=== PATIENT | male | born 1985 ===

== ENCOUNTER 2018-12-22 11:33 | Emergency (ER) | payer SELFPAY ==
[2018-12-22] MEDS ORDERED: Sodium Chloride 0.9% 1,000 ML IV STA (11:52)
--- NOTE | 2018-12-22 11:55 | ED PDOC ---
HPI: General Adult Time Seen by Provider: 12/22/18 11:38 Chief Complaint (Nursing): Chest Pain History Per: Patient Onset/Duration Of Symptoms: Days (1) Current Symptoms Are (Timing): Still Present Severity: Mild Recent Trauma: Fell yesterday Additional Complaint(s): Fell yesterday with injury to left lateral ribs. C/o pain left ribs, worse on inspiration and movement. Denies SOB. Denies LOC. Admits to drinking daily, last drink 3 PM yesterday. Feels tremulous now. Wishes to stop drinking. No NVD. No fever. Past Medical History Vital Signs: Last Vital Signs Temp 98.6 F 12/22/18 11:43 Pulse 108 H 12/22/18 11:43 Resp 20 12/22/18 11:43 BP 159/100 H 12/22/18 11:43 Pulse Ox 98 12/22/18 11:43 - Medical History PMH: No Chronic Diseases - Family History Family History: States: Unknown Family Hx - Home Medications Home Medications: Ambulatory Orders Medication Instructions Recorded Naproxen [Naprosyn] 500 mg PO Q12H #20 tab 12/22/18 chlordiazePOXIDE [Chlordiazepoxide 25 mg PO Q8 #6 cap 12/22/18 HCl] - Allergies Allergies/Adverse Reactions: Allergies Allergy/AdvReac Type Severity Reaction Status Date / Time No Known Allergies Allergy Verified 12/22/18 11:43 Review of Systems ROS Statement: Except As Marked, All Systems Reviewed And Found Negative Constitutional: Negative for: Fever Cardiovascular: Positive for: Chest Pain Respiratory: Negative for: Shortness of Breath Gastrointestinal: Negative for: Nausea, Vomiting Neurological: Positive for: Other (Tremulous). Negative for: Seizures, Headache, Dizziness Physical Exam - Reviewed Nursing Documentation Reviewed: Yes Vital Signs Reviewed: Yes - Physical Exam Appears: Positive for: Non-toxic, No Acute Distress Head Exam: Positive for: ATRAUMATIC, NORMAL INSPECTION, NORMOCEPHALIC Skin: Positive for: Normal Color, Warm, DRY Eye Exam: Positive for: EOMI, Normal appearance, PERRL ENT: Positive for: Normal ENT Inspection Neck: Positive for: Normal, Painless ROM Cardiovascular/Chest: Positive for: Regular Rate, Rhythm, Tachycardia. Negative for: Chest Non Tender (Tenderness left lateral lower ribs. No ecchymosis or flail) Respiratory: Positive for: CNT, Normal Breath Sounds Gastrointestinal/Abdominal: Positive for: Normal Exam, Soft Back: Positive for: Normal Inspection Extremity: Positive for: Normal ROM Neurological/Psych: Positive for: Awake, Alert, Normal Tone, Oriented (x3), Other (Tremors upper ext bilat). Negative for: Motor/Sensory Deficits - Laboratory Results Result Diagrams: 12/22/18 12:05 12/22/18 12:05 - ECG O2 Sat by Pulse Oximetry: 98 Medical Decision Making Medical Decision Making: Tremors most likely secondary to ETOH withdrawal. Will tx with librium and IV fluids. Will obtain xray to r/o rib fracture vs. pneumothorax Xray read by radiologist as no pneumothorax or rib fx Pt reevaluated at 1:30. Feels better and is no longer tremulous Will Dc with outpt referal for ETOH treatment Disposition - Clinical Impression Clinical Impression: Rib contusion, Alcohol addiction - Patient ED Disposition Is Patient to be Admitted: No - Disposition Disposition: Routine/Home Disposition Time: 13:31 Condition: STABLE Prescriptions: chlordiazePOXIDE [Chlordiazepoxide HCl] 25 mg PO Q8 #6 cap Naproxen [Naprosyn] 500 mg PO Q12H #20 tab Instructions: Alcohol Use - When Is Drinking a Problem?, Bruised Rib (DC), Alcohol Withdrawal Forms: [employer] (Polish) Print Language: GEORGIAN
[2018-12-22 12:23] LABS: BASO % 0.3 % (0.0-2.0); HEMOGLOBIN 14.9 g/dL (12.0-18.0); LYMPH # 0.5 K/uL (1.0-4.3); MEAN CELL VOLUME 94.4 fl (80.0-94.0); MEAN CORPUSCULAR HEMOGLOBIN 32.5 pg (27.0-31.0); MEAN CORPUSCULAR HGB CONC 34.4 g/dL (33.0-37.0); MEAN PLATELET VOLUME 10.7 fl (7.2-11.7); MONO # 0.6 K/uL (0.0-0.8); MONO % 5.5 % (0.0-10.0); NEUT # 9.7 K/uL (1.8-7.0); NEUT % 89.2 % (50.0-75.0); PLATELET COUNT 122 K/uL (130-400); RBC 4.58 Mil/uL (4.40-5.90); RED CELL DISTRIBUTION WIDTH 14.4 % (11.5-14.5); WHITE BLOOD COUNT 10.9 K/uL (4.8-10.8)
[2018-12-22 12:28] LABS: ALB/GLOB RATIO 1.4 (1.0-2.1); ALT/SGPT 207 U/L (21-72); AST/SGOT 234 U/L (17-59); BLOOD UREA NITROGEN 6 mg/dl (9-20); CALCIUM 10.1 mg/dL (8.4-10.2); GFR NON-AFRICAN AMERICAN > 60
--- NOTE | 2018-12-22 13:21 | RAD ---
Date of service: 12/22/2018 PROCEDURE: Radiographs of the Chest and Left Ribs. HISTORY: trauma COMPARISON: None available. TECHNIQUE: Frontal radiograph of the chest and multiple oblique radiographs of the left ribs were obtained. 4 views obtained. FINDINGS: Note that the study is somewhat limited due to underpenetration and poor visualization of the lower ribs LEFT RIBS: No fracture or focal lesion visualized. LUNGS: Clear. PLEURA: No pneumothorax or pleural fluid. Minor left apical pleural thickening. CARDIOVASCULAR: Normal cardiac size. No pulmonary vascular congestion. No aortic atherosclerotic calcification present OTHER FINDINGS: None. IMPRESSION: Unremarkable radiographs of the chest.. No definitive radiographic evidence of acute displaced left-sided rib fracture. If symptoms persist or occult rib fracture suspected clinically consider follow-up CT scan of the chest.
[2018-12-22 13:38] LABS: BANDS 2 % (0-2); LYMPHOCYTE 4 % (20-50); MONOCYTE 8 % (0-10); NEUTROPHIL 86 % (42-75); PLATELET ESTIMATE SLIGHTLY DECREASED (NORMAL); TOTAL CELLS COUNTED 100
[2018-12-22 13:39] LABS: LARGE PLATELETS PRESENT; MICROCYTOSIS SLIGHT; TEARDROP CELLS SLIGHT
[2018-12-22 14:04] VITALS: BP 128/76; PULSE 89; RESP 18; TEMP 98.1; O2SAT 100
--- NOTE | 2018-12-23 17:46 | CARD ---
APPROVED REPORT Date of service: 12/22/2018 EKG Measurement Heart [id number] <Conclusion> Sinus tachycardia Otherwise normal ECG
== END 2018-12-22 14:00 | disposition home or self-care (01) ==
LOC: H.ER 11:33
DX: F10.20 Alcohol dependence, uncomplicated (principal); S20.219A Contusion of unspecified front wall of thorax, initial encounter; W19.XXXA Unspecified fall, initial encounter; Y92.89 Other specified places as the place of occurrence of the external cause
CPT/HCPCS: 71101; 80053; 85025; 93005; 99283; G0480; J7030